=== PATIENT | female | born 1940 | race Two or more races ===

== ENCOUNTER 2025-01-02 11:32 | Emergency (ER) | payer OTHER ==
[~2025-01-02] VITALS: Ht 157.5 cm; Wt 68.0 kg
[2025-01-02] MEDS ORDERED: ATORVASTATIN CA40 MG PO (12:23)
[2025-01-02] MEDS ORDERED: KETOROLAC TROMETHAMINE 30 MG VIAL IM STA (14:37)
[2025-01-02] MEDS ORDERED: ACETAMINOPHEN 325 MG TABLET PO STA (14:41)
[2025-01-02] MEDS ORDERED: GABAPENTIN 300 MG CAPSULE PO ONE (14:45)
[2025-01-02] MEDS ORDERED: KETOROLAC TROMETHAMINE 30 MG VIAL ONE (14:57)
[2025-01-02] MEDS ORDERED: ACETAMINOPHEN 500 MG GEL..CAP PO ONE (14:58)
== END 2025-01-02 16:06 | disposition home or self-care (01) ==
LOC: ER 11:33
DX: B02.30 Zoster ocular disease, unspecified (principal); I10 Essential (primary) hypertension; Z88.8 Allergy status to other drugs, medicaments and biological substances